=== PATIENT | female | born 1945 | race Caucasian/White ===

== ENCOUNTER 2018-03-23 08:22 | Inpatient (IN) | payer BC ==
[~2018-03-23] VITALS: Ht 152.4 cm; Wt 68.1 kg
[2018-03-23 08:29] VITALS: Ht 152.4 cm; Wt 68.1 kg
[2018-03-23 09:20] LABS: CALCIUM 8.6 mg/dL (8.5-10.1); CARBON DIOXIDE 27.2 mmol/L (21-32); CREATININE SERUM 1.4 mg/dL (0.6-1.0); POTASSIUM SERUM 3.6 mmol/L (3.5-5.1)
[2018-03-23 09:39] LABS: BILIRUBIN TOTAL 0.8 mg/dL (0.20-1.00); PLATELET COUNT 333 x10^3mcL (130-400); RED CELL DISTRIBUTION WIDTH 13.6 % (11.5-14.5); TOTAL PROTEIN, SERUM 7.8 g/dL (6.4-8.2)
[2018-03-23 13:11] LABS: microscopic required? YES; urine erythrocyte NEGATIVE (NEGATIVE)
[2018-03-23] MEDS ORDERED: METOPROLOL SUC100 M2 PO (14:31)
[2018-03-23] MEDS ORDERED: TYLENOL WITH CO1 TA2 PO (14:31)
[2018-03-23] MEDS ORDERED: LABETALOL HYDR300 MG PO (14:31)
[2018-03-23] MEDS ORDERED: MAGNESIUM OXID400 MG PO (14:32)
[2018-03-23] MEDS ORDERED: HYDROCHLOROTHIA25 MG (14:32)
[2018-03-23] MEDS ORDERED: ZESTRIL20 MG PO (14:32)
[2018-03-23] MEDS ORDERED: CARTIA XT180 M1 PO (14:33)
[2018-03-23 15:07] LABS: MAGNESIUM 2.1 mg/dL (1.8-2.4); PHOSPHOROUS 4.5 mg/dL (2.5-4.9)
[2018-03-23 15:08] VITALS: BP 177/96
[2018-03-23 15:09] LABS: AMPHETAMINE QUAL UR NONE DETECTED (See below)
[2018-03-23 15:18] LABS: FREE T4 1.08 ng/dL (0.76-1.46); FREE THYROXINE INDEX 3.1 ug/dL (1.4-4.5); T4(THYROXINE) 9.2 ug/dL (4.7-13.3)
[2018-03-23 16:15] VITALS: BP 164/103
[2018-03-23 16:40] VITALS: BP 158/95
[2018-03-23 20:33] VITALS: BP 137/82
[2018-03-24 05:40] VITALS: BP 168/78
[2018-03-24 06:44] LABS: BASOPHIL % 0.5 % (0-2); PLATELET COUNT 272 x10^3mcL (130-400); RED CELL DISTRIBUTION WIDTH 13.8 % (11.5-14.5)
[2018-03-24 06:49] VITALS: BP 153/92
[2018-03-24 07:11] LABS: CALCIUM 8.2 mg/dL (8.5-10.1); CARBON DIOXIDE 28.3 mmol/L (21-32); CREATININE SERUM 1.3 mg/dL (0.6-1.0); MAGNESIUM 1.9 mg/dL (1.8-2.4); PHOSPHOROUS 4.1 mg/dL (2.5-4.9); POTASSIUM SERUM 3.9 mmol/L (3.5-5.1)
[2018-03-24 09:28] VITALS: BP 186/97
[2018-03-24 13:27] VITALS: BP 145/89
[2018-03-24 17:46] VITALS: BP 169/93
[2018-03-24 22:18] VITALS: BP 150/93
[2018-03-25 05:59] VITALS: BP 129/73
[2018-03-25 08:59] VITALS: BP 177/93
[2018-03-25 13:40] VITALS: BP 149/80
[2018-03-25 17:20] VITALS: BP 144/78
[2018-03-25 20:45] VITALS: BP 145/86
[2018-03-26 05:41] VITALS: BP 118/64
[2018-03-26 06:36] LABS: BASOPHIL % 0.8 % (0-2); PLATELET COUNT 267 x10^3mcL (130-400); RED CELL DISTRIBUTION WIDTH 13.9 % (11.5-14.5)
[2018-03-26 06:37] LABS: CALCIUM 9.1 mg/dL (8.5-10.1); CARBON DIOXIDE 25.6 mmol/L (21-32); CREATININE SERUM 1.6 mg/dL (0.6-1.0); POTASSIUM SERUM 4.3 mmol/L (3.5-5.1)
[2018-03-26 08:21] VITALS: BP 145/97
[2018-03-26 14:21] VITALS: BP 144/84
[2018-03-26 14:45] VITALS: BP 125/74
[2018-03-26 16:54] VITALS: BP 134/80
[2018-03-26] MEDS ORDERED: NOR10 PO (17:50)
[2018-03-26] MEDS ORDERED: TRA100 PO (17:50)
[2018-03-26] MEDS ORDERED: ELA25 PO (17:50)
[2018-03-26] MEDS ORDERED: ZES20 PO (17:51)
[2018-03-26] MEDS ORDERED: LIPI10 PO (17:51)
[2018-03-26] MEDS ORDERED: APAP/HYDROCODON1 T13 PO (19:05)
== END 2018-03-26 20:16 | disposition home or self-care (01) | DRG 304 ==
LOC: ED 08:22 → DU 14:09
PROVIDERS: Emergency Medicine; Family Medicine; Internal Medicine Gastroenterology
PROC: 0DB78ZX Excision of Stomach, Pylorus, Via Natural or Artificial Opening Endoscopic, Diagnostic (ICD-10-PCS; principal; 2018-03-26 13:15)
PROC: 0DJD8ZZ Inspection of Lower Intestinal Tract, Via Natural or Artificial Opening Endoscopic (ICD-10-PCS; 2018-03-26 13:15)
DX: I16.1 Hypertensive emergency (principal); N17.0 Acute kidney failure with tubular necrosis; I12.9 Hypertensive chronic kidney disease with stage 1 through stage 4 chronic kidney disease, or unspecified chronic kidney disease; N18.3 Chronic kidney disease, stage 3 (moderate); K29.70 Gastritis, unspecified, without bleeding; K64.8 Other hemorrhoids; K76.9 Liver disease, unspecified; K57.30 Diverticulosis of large intestine without perforation or abscess without bleeding; D63.1 Anemia in chronic kidney disease; E78.5 Hyperlipidemia, unspecified; F41.9 Anxiety disorder, unspecified; Z68.29 Body mass index [BMI] 29.0-29.9, adult; Z79.1 Long term (current) use of non-steroidal anti-inflammatories (NSAID)
CPT/HCPCS: 43235; 45378; 83880; 84439; J1200; J1610; J2060; J2250; J2310; J3010; J3490; J7030; Q0092